=== PATIENT | male | born 2000 | race Two or more races ===

== ENCOUNTER 2022-12-03 18:44 | Emergency (ER) | payer SELFPAY ==
[~2022-12-03] VITALS: Ht 182.9 cm; Wt 100.0 kg
[2022-12-03 18:55] VITALS: BP 134/63
== END 2022-12-03 20:29 | disposition left against medical advice (07) ==
LOC: EMS 18:44
DX: R05.9 Cough, unspecified (principal); Z53.21 Procedure and treatment not carried out due to patient leaving prior to being seen by health care provider
CPT/HCPCS: 99281; Z7502